=== PATIENT | female | born 1950 | race Caucasian/White ===

== ENCOUNTER → 2016-07-14 | Outpatient (CLI) | payer OTHER ==
[~2016-07-14] MED LIST: ALD2525 PO; FLUO20CA35 PO; PRLSR20 PO; SIMV40TA2 PO; UNKNOWN DIURETIC
--- NOTE | 2016-07-14 16:29 | MAMMOGRAPHY REPORT ---
BILATERAL DIGITAL SCREENING MAMMOGRAM WITH CAD: 07/14/2016 CLINICAL HISTORY: Routine screening. Patient has no complaints. TECHNIQUE: Current study was also evaluated with a Computer Aided Detection (CAD) system. COMPARISON: Comparison is made to exams dated: 04/20/2013 mammogram, 04/12/2013 mammogram, 10/14/2005 mammogram, and 02/28/1999 mammogram - [facility]. BREAST COMPOSITION: There are scattered areas of fibroglandular density in both breasts. FINDINGS: There is a possible small cluster of microcalcifications in the lateral, middle one third of the right breast, for which additional spot magnification views are recommended. A few scattered benign-appearing microcalcifications are seen in the left breast. No other suspicio us mass, architectural distortion or cluster of suspicious microcalcifications is seen. IMPRESSION: ACR BI-RADS CATEGORY 0: INCOMPLETE EVALUATION: NEED ADDITIONAL IMAGING EVALUATION The possible small cluster of microcalcifications in the lateral right breast needs additional evalu ation. The patient will be called to schedule an appointment. Approximately 10% of breast cancers are not detected with mammography. A negative mammographic repor t should not delay biopsy if a clinically suggestive mass is present. Muriel Cortez M.D. ay/:07/14/2016 15:07:46 Performance Test Architect: Zee DREW(Teresita)(Robyn), [facility] letter sent: Addl Imaging 0 BI-RADS Code: ACR BI-RADS Category 0: Incomplete Evaluation: Need Additional Imaging Evaluation
== END | disposition home or self-care (01) ==
LOC: C.MAMM 08:18
PROVIDERS: ATTEND Internal Medicine
DX: Z12.31 Encounter for screening mammogram for malignant neoplasm of breast (principal); R92.8 Other abnormal and inconclusive findings on diagnostic imaging of breast

== ENCOUNTER → 2016-07-24 | Outpatient (CLI) | payer OTHER ==
--- NOTE | 2016-07-24 14:56 | MAMMOGRAPHY REPORT ---
UNILATERAL RIGHT DIGITAL DIAGNOSTIC MAMMOGRAM: 07/24/2016 CLINICAL HISTORY: Callback from screening mammogram for right breast calcifications. TECHNIQUE: Spot magnification right CC and ML views were obtained. COMPARISON: Comparison is made to exams dated: 07/14/2016 mammogram, 04/20/2013 mammogram, 04/12/2013 mammogram, 10/14/2005 mammogram, and 02/28/1999 mammogram - [facility]. BREAST COMPOSITION: There are scattered areas of fibroglandular density in the right breast. FINDINGS: Spot magnification views of the right breast demonstrate a small 2 mm cluster of calcific ations in the right upper outer quadrant. One is a coarse benign-appearing calcification which is s table compared to the March 2013 exams, while the others are smaller and punctate and were not gilda dory evident on the 2013 exam although this could be due to technical differences (currently using [employer] equipment, previously using [employer] equipment). The calcifications are probably benign. IMPRESSION: ACR-BI-RADS CATEGORY 3: PROBABLY BENIGN Small 2 mm cluster of calcifications in the right upper outer quadrant is probably benign. Recommen d follow-up diagnostic mammograms in 6 months of the right breast to confirm stability on spot magni fication views. The patient has been verbally notified of the results. Approximately 10% of breast cancers are not detected with mammography. A negative mammographic repor t should not delay biopsy if a clinically suggestive mass is present. Serina Heard M.D. /:07/24/2016 08:22:49 Trimmer Machine: Cassie DREW(Teresita)(M), [facility] letter sent: Follow Up Recommended 3 BI-RADS Code: ACR-BI-RADS Category 3: Probably Benign
== END | disposition home or self-care (01) ==
LOC: C.MAMM 07:59
PROVIDERS: ATTEND Internal Medicine
DX: R92.1 Mammographic calcification found on diagnostic imaging of breast (principal)

== ENCOUNTER → 2016-08-20 | Outpatient (CLI) | payer OTHER ==
[2016-08-20 12:29] LABS: HEMATOCRIT 42.2 % (37-47); MEAN CELL VOLUME 92.5 fL (80-100); MEAN CORPUSCULAR HEMOGLOBIN 30.3 pg (25-34); MEAN CORPUSCULAR HGB CONC 32.7 g/dl (32-36); MEAN PLATELET VOLUME 11.7 fL (7.4-10.4); PLATELET COUNT 216 K/uL (130-400); RED BLOOD COUNT 4.56 M/uL (4.2-5.4); WHITE BLOOD COUNT 5.95 K/uL (4.8-10.8)
[2016-08-20 12:41] LABS: CALCIUM 9.4 mg/dl (8.5-10.1)
[2016-08-20 12:47] LABS: ALT/SGPT 25 U/L (12-78); BLOOD UREA NITROGEN 17 mg/dl (7-18); BUN/CREATININE RATIO 18.8 (10-20); CARBON DIOXIDE 29 mmol/L (21-32); CHLORIDE 106 mmol/L (98-107); CHOLESTEROL 179 mg/dl (0-200); CREATININE 0.92 mg/dl (0.60-1.20); GLUCOSE 88 mg/dl (70-99); POTASSIUM 3.7 mmol/L (3.5-5.1); SODIUM 142 mmol/L (136-145); TRIGLYCERIDES 123 mg/dl (0-150); VERY LOW DENSITY LIPOPROT CALC 25 mg/dl
[2016-08-20 12:52] LABS: ALB/GLOB RATIO 1.2 (0.9-2); ALKALINE PHOSPHATASE 89 U/L (45-117); AST/SGOT 22 U/L (15-37); CHOLESTEROL/HDL RATIO 4.2; HDL CHOLESTEROL 43 mg/dl; LDL CHOLESTEROL CALCULATED 111 mg/dl
[2016-08-20 12:53] LABS: ESTIMATED AVERAGE GLUCOSE 108 mg/dl; HA1C FLAG Normal (Normal)
== END | disposition home or self-care (01) ==
LOC: C.LABBFT 07:33
PROVIDERS: ATTEND Internal Medicine
DX: E78.5 Hyperlipidemia, unspecified (principal); R73.01 Impaired fasting glucose

== ENCOUNTER → 2016-09-09 | Outpatient (CLI) | payer OTHER | END | disposition home or self-care (01) | LOC: C.PAPS 09:23 | PROVIDERS: ATTEND Obstetrics & Gynecology | DX: Z01.419 Encounter for gynecological examination (general) (routine) without abnormal findings (principal) ==

== ENCOUNTER → 2017-01-25 | Outpatient (CLI) | payer OTHER ==
--- NOTE | 2017-01-25 14:57 | MAMMOGRAPHY REPORT ---
UNILATERAL RIGHT DIGITAL DIAGNOSTIC MAMMOGRAM TOMOSYNTHESIS WITH CAD: 01/25/2017 CLINICAL HISTORY: 66-year-old woman presents for follow-up in the right breast with particular attent ion to a small grouping of benign-appearing microcalcifications in the approximate 9:00 middle one th ird of the breast. TECHNIQUE: B right breast CC and MLO 2-D and tomosynthesis images, spot magnification right CC and M L views were obtained. Current study was also evaluated with a Computer Aided Detection (CAD) system . COMPARISON: Comparison is made to exams dated: 07/24/2016 mammogram, 07/14/2016 mammogram, 04/20/2013 m ammogram, 04/12/2013 mammogram, and 10/14/2005 mammogram - [facility]. BREAST COMPOSITION: There are scattered areas of fibroglandular density in the right breast. FINDINGS: Again noted is a small, 2 mm grouping of microcalcifications in the 9:00 middle one third o f the right breast. There is a stable coarse benign-appearing calcification included in the grouping and a few other punctate benign appearing microcalcifications. When comparing back to prior mammogr ams, these are stable comparing to the spot magnification views dated 07/24/2016, but only the coarse st calcification was present and identified on the 2013 mammograms. Although these microcalcificatio ns are most likely benign, another six-month follow-up diagnostic evaluation is recommended to ensure longer stability. There is stable nodularity in the lateral right breast, which appears similar to the 04/12/2013 mammo grams. No other new suspicious mass, asymmetry, calcifications or architectural distortion is identi fied. IMPRESSION: ACR-BI-RADS CATEGORY 3: PROBABLY BENIGN Stable mammographic appearance of the right breast including a small 2 mm grouping of coarse and punc anderson calcifications in the 9:00 right breast. Another six-month follow-up right diagnostic mammogram including spot magnification views is recommended to ensure longer stability. Annual left mammograp hy will also be due at that time. These results and recommendations were discussed with the patient at the time of the exam. Approximately 10% of breast cancers are not detected with mammography. A negative mammographic report should not delay biopsy if a clinically suggestive mass is present. Muriel Cortez M.D. ay/:01/25/2017 09:46:15 Packager Or Packer And Weigher: Cassie DREW(R)(M), [facility] letter sent: Follow Up Recommended 3 BI-RADS Code: ACR-BI-RADS Category 3: Probably Benign
== END | disposition home or self-care (01) ==
LOC: C.MAMM 08:30
PROVIDERS: ATTEND Internal Medicine
DX: R92.1 Mammographic calcification found on diagnostic imaging of breast (principal)

== ENCOUNTER → 2017-03-17 | Outpatient (CLI) | payer OTHER ==
[2017-03-17 12:29] LABS: BASO % 0.5 %; BASO ABS # 0.03 K/uL (0-0.2); COMPLETE YES; EOS % 5.6 %; HEMATOCRIT 43.6 % (37-47); IG% 0.2 %; LYMPH % 37.1 %; MEAN CELL VOLUME 92.2 fL (80-100); MEAN CORPUSCULAR HEMOGLOBIN 31.1 pg (25-34); MEAN CORPUSCULAR HGB CONC 33.7 g/dl (32-36); MEAN PLATELET VOLUME 11.4 fL (7.4-10.4); MONO % 8.3 %; NEUT % 48.3 %; PLATELET COUNT 218 K/uL (130-400); RED BLOOD COUNT 4.73 M/uL (4.2-5.4); WHITE BLOOD COUNT 5.93 K/uL (4.8-10.8)
[2017-03-17 13:07] LABS: ALT/SGPT 26 U/L (12-78); AST/SGOT 19 U/L (15-37); BLOOD UREA NITROGEN 21 mg/dl (7-18); BUN/CREATININE RATIO 23.7 (10-20); CALCIUM 9.2 mg/dl (8.5-10.1); CARBON DIOXIDE 30 mmol/L (21-32); CHLORIDE 103 mmol/L (98-107); GLUCOSE 95 mg/dl (70-99); POTASSIUM 3.8 mmol/L (3.5-5.1); SODIUM 138 mmol/L (136-145)
[2017-03-17 13:10] LABS: ALB/GLOB RATIO 1.1 (0.9-2); ALKALINE PHOSPHATASE 82 U/L (45-117); CHOLESTEROL 196 mg/dl (0-200); CHOLESTEROL/HDL RATIO 4.4; HDL CHOLESTEROL 45 mg/dl; LDL CHOLESTEROL CALCULATED 121 mg/dl; TRIGLYCERIDES 152 mg/dl (0-150); VERY LOW DENSITY LIPOPROT CALC 30 mg/dl
[2017-03-17 13:17] LABS: ESTIMATED AVERAGE GLUCOSE 108 mg/dl; HA1C FLAG Normal (Normal)
== END | disposition home or self-care (01) ==
LOC: C.LABBFT 07:26
PROVIDERS: ATTEND Physician Assistant Medical
DX: R73.01 Impaired fasting glucose (principal)

== ENCOUNTER → 2017-06-08 | Outpatient (CLI) | payer OTHER ==
--- NOTE | 2017-06-08 09:43 | DIAGNOSTIC IMAGING REPORT ---
L ANKLE MIN 3 VIEWS ROUTINE HISTORY: 67 years-old Female M25.572 Left ankle pain acute left ankle pain status post fall COMPARISON: None available TECHNIQUE: 3 views of the left ankle FINDINGS: There is mild circumferential soft tissue swelling about the ankle with trace joint effusion. No acute fracture or dislocation identified. No osteochondral defect. Moderate sized enthesophyte about the plantar calcaneus. No opaque foreign body. IMPRESSION: Mild soft tissue swelling and trace joint effusion without acute fracture. The above report was generated using voice recognition software. It may contain grammatical, syntax or spelling errors. Electronically signed by: Baron Ramos M.D. 06/08/2017 9:41 AM Dictated Date/Time: 06/08/2017 9:40 AM
--- NOTE | 2017-06-08 09:44 | DIAGNOSTIC IMAGING REPORT ---
L KNEE 1 OR 2 VIEWS ROUTINE HISTORY: 67 years-old Female M25.562 Left knee pain acute left knee pain status post fall COMPARISON: None available TECHNIQUE: 2 views of the left knee FINDINGS: Mild tricompartmental osteoarthritis about the left knee. Small knee joint effusion. There is no acute fracture or subluxation identified. IMPRESSION: Small knee joint effusion without acute fracture. The above report was generated using voice recognition software. It may contain grammatical, syntax or spelling errors. Electronically signed by: Baron Ramos M.D. 06/08/2017 9:43 AM Dictated Date/Time: 06/08/2017 9:41 AM
== END | disposition home or self-care (01) ==
LOC: C.RAD1850 09:30
PROVIDERS: ATTEND Nurse Practitioner
DX: M25.572 Pain in left ankle and joints of left foot (principal); M25.562 Pain in left knee

== ENCOUNTER → 2017-07-23 | Outpatient (CLI) | payer OTHER ==
--- NOTE | 2017-07-26 07:47 | MAMMOGRAPHY REPORT ---
BILATERAL DIGITAL DIAGNOSTIC MAMMOGRAM TOMOSYNTHESIS WITH CAD: 07/23/2017 CLINICAL HISTORY: Six-month follow-up of right breast calcifications. TECHNIQUE: Breast tomosynthesis in addition to standard 2D mammography was performed. Current study was also evaluated with a Computer Aided Detection (CAD) system. Bilateral CC and MLO 2D and tomosyn thesis images and spot magnification right CC and ML views were obtained. COMPARISON: Comparison is made to exams dated: 01/25/2017 mammogram, 07/24/2016 mammogram, 04/20/2013 mammogram, 04/12/2013 mammogram, 10/14/2005 mammogram, and 02/28/1999 mammogram - [facility]. BREAST COMPOSITION: There are scattered areas of fibroglandular density in both breasts. FINDINGS: Spot magnification views again demonstrate a small 2 mm cluster of benign-appearing coarse heterogeneous calcifications within the right 9:00 breast. The calcifications are stable on spot magn ification views dated back to June 2016, and are considered benign given the morphology and long-ter m stability. The remainder of both breasts are stable compared to prior exams, without suspicious ma sses, calcifications, or areas of architectural distortion noted. Scattered bilateral benign-appeari ng calcifications are not significantly changed. IMPRESSION: ACR BI-RADS CATEGORY 2: BENIGN Small cluster of benign-appearing calcifications in the right 9:00 breast is stable dating back to June 2016 exam and is considered benign given the morphology and stability. The cluster is well v isualized on the full-field views and can be reevaluated at the time of the next screening mammogram. There is no mammographic evidence of malignancy. A 1 year screening mammogram is recommended. The abi english has been verbally notified of the results. Approximately 10% of breast cancers are not detected with mammography. A negative mammographic report should not delay biopsy if a clinically suggestive mass is present. Serina Heard M.D. /:07/23/2017 09:28:23 Family Assistant: Cassie DREW(Teresita)(M), [facility] letter sent: Normal 1/2 BI-RADS Code: ACR BI-RADS Category 2: Benign
== END | disposition home or self-care (01) ==
LOC: C.MAMM 08:42
PROVIDERS: ATTEND Internal Medicine
DX: R92.1 Mammographic calcification found on diagnostic imaging of breast (principal)

== ENCOUNTER 2024-05-22 05:05 | Observation (INO) ==
--- NOTE | 2024-04-19 12:36 | PAT Medication Instructions ---
Medication Instructions Date of Service April 19, 2024 Home Medications Medication Instructions Recorded atorvastatin 20 mg tablet 20 mg PO QPM #90 tabs 06/02/23 spironolactone 25 1 tab PO BID #180 tabs 11/30/23 mg-hydrochlorothiazide 25 mg tablet aspirin 81 mg tablet 81 mg PO DAILY multivitamin (Multiple Vitamins tablet) 1 tab PO QAM atorvastatin 20 mg tablet 20 mg PO QPM spironolactone 25 mg-hydrochlorothiazide 25 mg tablet 1 tab PO BID calcium 600 mg (as carbonate)-vitamin D3 5 mcg (200 unit) tablet 2 tab PO DAILY fluoxetine 20 mg capsule 20 mg PO QAM omeprazole 20 mg capsule,delayed release 20 mg PO QAM ASK your prescriber and surgeon aspirin 81 mg tablet 81 mg PO DAILY DO NOT take the morning of surgery multivitamin (Multiple Vitamins tablet) 1 tab PO QAM spironolactone 25 mg-hydrochlorothiazide 25 mg tablet 1 tab PO BID calcium 600 mg (as carbonate)-vitamin D3 5 mcg (200 unit) tablet 2 tab PO DAILY Take morning of surgery With a small sip of water, OTHERWISE NOTHING TO EAT OR DRINK AFTER MIDNIGHT: fluoxetine 20 mg capsule 20 mg PO QAM omeprazole 20 mg capsule,delayed release 20 mg PO QAM Take evening before surgery atorvastatin 20 mg tablet 20 mg PO QPM spironolactone 25 mg-hydrochlorothiazide 25 mg tablet 1 tab PO BID Other Notes If you have any questions please call us at [phone] or [phone] or [phone] or [phone]
--- NOTE | 2024-04-26 10:50 | Anesthesiology Consultation ---
Date of Service April 26, 2024 Assessment & Plan (1) Encounter for pre-operative examination: Chart Review Chart Review: Acceptable Risk for Surgery and Patient seen in Pre Admission Testing - Discussed adrenal nodule with Dr. Ames (patient referred to endocrine by PCP but has not yet seen endocrine (plans to follow up post op)); adrenal nodule found incidentally. Patient denies jitteriness, sweats or palpitations. Patient active without issues. Vital signs stable- patient can proceed as scheduled - Patient is NOT an ideal OPJ candidate (currently 23 hour obs) Per PAT appt on 04/26/24, no recent illness/disease exposures, illness related symptoms, or recent illness/disease positive tests. Will leave to surgeon's discretion if preop Covid testing needed Teaching & Discussion Pre-Anesthesia Teaching/Discussion Notes: Instructed NPO after midnight before surgery,except medications with 15 cc of water. Medication instructions provided according to the PAT guidelines. History Surgery Operation Date: 05/22/24 12:35 Proposed Procedures p Right Anterior Total Hip Arthroplasty - Alfredo Us DO Height/Weight Height: 5 ft 8 in Weight: 89.6 kg Allergies Allergy/AdvReac Type Severity Reaction Status Date / Time No Known Allergies Allergy Verified 04/11/24 12:41 Medications Home Medications Medication Instructions Recorded Confirmed Last Taken aspirin 81 mg tablet 81 mg PO DAILY 09/08/18 04/11/24 Unknown multivitamin (Multiple Vitamins 1 tab PO QAM 12/04/21 04/11/24 Unknown tablet) atorvastatin 20 mg tablet 20 mg PO QPM #90 tabs 06/02/23 04/11/24 Unknown spironolactone 25 1 tab PO BID #180 tabs 11/30/23 04/11/24 Unknown mg-hydrochlorothiazide 25 mg tablet calcium 600 mg (as 2 tab PO DAILY 04/11/24 04/11/24 Unknown carbonate)-vitamin D3 5 mcg (200 unit) tablet fluoxetine 20 mg capsule 20 mg PO QAM 04/11/24 04/11/24 Unknown omeprazole 20 mg capsule,delayed 20 mg PO QAM 04/11/24 04/11/24 Unknown release Past Medical History Medical History (Updated 04/26/24 @ 11:24 by Sanjuanita Wolf PA-C) Acquired deviated nasal septum no issues breathing out of nose Adrenal nodule CT scan 12/02/24 - monitoring. Bilateral lower extremity edema no current issues with medications Depression with anxiety GERD without esophagitis well controlled and stable History of COVID-19 + home test approx 2021- symptoms completely resolved History of vertigo no recent issues Hypercholesterolemia Hypertension Left thyroid nodule hx bx - benign. Osteoarthritis of right hip Exercise / Class Metabolic Activity II 4-5 Yardwork/Stairs/Walk up hill (one flight of stairs - no chest pain or SOB ) Past Family History Family History Mother COPD (chronic obstructive pulmonary disease) Heart disease Other No family history of bleeding disorder Denies family history of Ovarian cancer Prostate cancer Myocardial infarction Breast cancer Colorectal cancer Cancer Hypertension Stroke Asthma Past Surgical History Surgical History History of biopsy thyroid S/P tubal ligation S/P wisdom tooth extraction pt doesn't remember this procedure. Past Anesthesia History No Hx of Anesthesia Complications and No Family Hx of Anesthesia Complications History of PONV No Hx of PONV and No Hx of Motion Sickness Social History Smoking Status: Former smoker Smoking cigarettes per day: 30 cigs/day Do You Dip or Chew Tobacco: No Smoking End Date: Around 1989 Hx Alcohol Use: Yes Alcohol type: hard liquor alcohol intake frequency: holidays/special occasions only Hx Substance Use: No substance use type: does not use Review of Systems - Hx of snoring - no hx of sleep study Patient denies chest pain, shortness of breath, dyspnea on exertion, cough, wheezing, palpitations. No hx of seizures, stroke, RI. No hx of blood clots or blood transfusions Physical Exam Vital Signs VITALS BP 127/79 P 71 TEMP 97.8 SP02 95% RESP 16 Constitutional no acute distress ENMT Mouth: no TMJ clicking Thyromental Distance: > or= 3.5 Finger Breadths (3.5) Mallampati Class: II Full upper denture; bottom lower denture Neck neck extension not limited Respiratory normal respiratory effort; no respiratory distress Auscultation: lungs clear to auscultation bilaterally; no wheezes Cardiovascular Rate/Rhythm: regular rate and regular rhythm Heart Sounds: no murmur Vessels: no carotid bruit Musculoskeletal Spine: no pain with cervical ROM Extremities: extremities normal to inspection Psychiatric Orientation: alert Lab Results Anesthesia Preop Results Results Anesthesia Widget: WBC 6.83 K/ul (4.8-10.8) 04/26/24 Hgb 13.2 g/dl (12.0-16.0) 04/26/24 Hct 39.3 % (37.0-47.0) 04/26/24 Plt 226 K/uL (130-400) 04/26/24 Na 140 mmol/L (136-145) 04/26/24 K 4.3 mmol/L (3.5-5.1) 04/26/24 Cl 104 mmol/L (98-107) 04/26/24 CO2 29 mmol/L (21-32) 04/26/24 BUN 23 mg/dl (6-23) 04/26/24 Creat 0.88 mg/dl (0.6-1.2) 04/26/24 Glucose Level 81 mg/dl (70-99(Fasting)) 04/26/24 PT 10.3 Seconds (9.0-12.0) 04/26/24 PTT 24 Seconds (21-31) 04/26/24 INR 0.9 (0.9-1.1) 04/26/24 Blood Type O Positive 04/26/24 Antibody Screen NEGATIVE 04/26/24 Testing Electrocardiogram Date: 04/26/24 Findings: + NSR @ (68bpm) Normal EKG per cardio Other Testing Chest CT 02/28/24= No CT findings to explain the patient's right-sided chest pain. 13 x 15 mm left adrenal nodule which is indeterminate. Moderate hiatal hernia. Coronary artery disease. Central airways are patent without endobronchial lesions. Bilateral dependent atelectasis. No suspicious pulmonary nodules or masses identified.
[2024-05-22] MEDS: LR 60ML/HR IV SCH (06:00)
[2024-05-22] MEDS: GABAPENTIN 300 MG CAP PO SCH (06:00)
[2024-05-22] MEDS: FAMOTIDINE 20 MG TAB PO SCH (06:00)
[2024-05-22] MEDS: ACETAMINOPHEN 500 MG TAB PO SCH ×2 (06:00→14:00)
[2024-05-22] MEDS: dexAMETHasone**PF** 10 MG/ML VIAL IV SCH (06:12)
[2024-05-22] MEDS: LR 500ML BOLUS, THEN 15ML/HR IV SCH (06:12)
[2024-05-22] MEDS ORDERED: BUPIVACAINE 0.5 % 5 MG/1 ML PF 10ML VIAL ONE (06:27)
[2024-05-22] MEDS ORDERED: fentaNYL citrate PF 100 MCG/2 ML VIAL ONE (06:32)
[2024-05-22] MEDS ORDERED: MIDAZOLAM HCL 1 MG/ML 2ML VIAL ONE (06:32)
[2024-05-22] MEDS ORDERED: PHENYLEPHRINE HCL 10 MG/ML VIAL ONE (06:34)
[2024-05-22] MEDS ORDERED: LIDOCAINE 2% 2 ML VIAL/AMP(20MG/ML) INFIL ONE (06:36)
[2024-05-22] MEDS ORDERED: ONDANSETRON INJ 2 MG/ML 2 ML VIAL ONE (06:36)
[2024-05-22] MEDS ORDERED: PROPOFOL IV EMULSION 10 MG/ML 20 ML VIAL IV ONE ×2 (06:37)
--- NOTE | 2024-05-22 06:48 | History & Physical Bridge Note ---
Date of Service May 22, 2024 History & Physical Bridge Note I have examined the patient, reviewed the History & Physical and in the interval since the performance of the History & Physical I have noted the following changes of clinical significance: no changes noted
[2024-05-22] MEDS: TRANEXAMIC ACID 1,000 MG **IV Pre-op IV SCH (06:55)
[2024-05-22] MEDS: ceFAZolin 2000MG 2,000 MG/15 ML SYR IV SCH (07:00)
[2024-05-22] MEDS ORDERED: ePHEDrine sulfate 50 MG/ML AMP IV PRN (07:10)
[2024-05-22] MEDS ORDERED: fentaNYL citrate PF 100 MCG/2 ML VIAL IV PRN (07:10)
[2024-05-22] MEDS ORDERED: ATROPINE SULFATE 0.1 MG/ML 10ML SYR IV PRN (07:10)
[2024-05-22] MEDS ORDERED: ONDANSETRON INJ 2 MG/ML 2 ML VIAL IV PRN ×2 (07:10→09:40)
[2024-05-22] MEDS ORDERED: PROMETHAZINE HCL 6.25 MG in SODIUM CHLORIDE 0.9% 50 ML IV PRN (07:10)
[2024-05-22] MEDS: ROPIV 0.5% 246mg, Ketorolac 30mg, EPINEPHrine 0.5mg in NSS INFIL SCH (07:26)
[2024-05-22] MEDS: ORTHO JOINT ANESTHETIC ONE (07:26)
[2024-05-22] MEDS: TRANEXAMIC ACID 1,000 MG **IV Intra-op IV SCH (08:18)
--- NOTE | 2024-05-22 08:23 | Operative Report ---
PG Post Operative Report Pre & Post Diagnosis Operation Date: 05/22/24 07:00 Pre-Op Diagnosis: Right Hip Osteoarthritis Post-Op Diagnosis: Right Hip Osteoarthritis I identified the patient and participated in the time-out.: Yes Procedure Operation Date: 05/22/24 07:00 Actual Procedures p Right Anterior Total Hip Arthroplasty, Cemented(Right) - Alfredo Us DO Surgeon Alfredo Us DO [place] Baron Arredondo PA-C Estimated Blood Loss 200 Findings Consistent with Post-Op Diagnosis Specimens Right femoral head Description of Procedure Implants used I used a [employer] total hip arthroplasty system with a size 9 cemented echo stem, a 54 mm G7 cup with a 25mm screw, an E1 polyethylene liner, a 40 mm ceramic head with a +3.5 neck. Patricia arrived at the hospital for the above procedure. She was seen in the preoperative holding area and the operative extremity was identified and signed. She was given a spinal anesthetic, a preoperative antibiotic, and TXA. She was then taken back to the operating room and laid on the table in the supine position. She was given basic sedation. The operative leg was secured to a Puristst leg positioner. The hip was then prepped and draped in sterile fashion. A timeout was done and the patient and the operative extremity was properly identified. An anterior approach was used. Dissection was taken down through the fascia and the tensor muscle belly was retracted laterally and the rectus was retracted medially. The circumflex vessels were identified and ligated. The capsule was then incised and tagged for later repair. The femoral neck was then cut and the femoral head was removed. The acetabulum was exposed. Time was spent doing a complete circumferential labral release. Sequential reaming of the acetabulum up to a size 53 reamer was done. Final reamings were done under fluoroscopy to ensure appropriate version. A Biomet 54 mm G7 cup was then impacted into place. A single 25 mm screw was placed. The E1 polyethylene liner was then snapped into place. Surrounding soft tissues were then injected with 100 cc of an orthopedic pain control cocktail. The proximal femur was then exposed. Sequential broaching up to a size 9 broach was done. Off that broach a size 40 head with a +3.5 neck was trialed. The hip was reduced and fluoroscopic images showed anatomic alignment of the implants in acceptable length. The broach was removed. The final size 9 echo stem was then cemented into place. A ceramic 40 mm head with a +3.5 neck was then impacted onto the stem and the hip was reduced. Final fluoroscopic images showed anatomic alignment of the hip. The capsule was then closed with #1 Vicryl suture. A dilute betadyne lavage was then done for 3 minutes. The joint was then irrigated with normal saline solution. The fascia was closed with #1 PDS suture. Skin was closed with 2-0 Vicryl, talat, and a Silverlon dressing. She was then transferred to a hospital bed and taken to the post anesthesia care unit in stable condition. She tolerated the procedure well. Baron Arredondo PA-C, was present for the entire procedure. He was critical for patient positioning, prepping, draping, retraction exposure, wound closure and application of sterile dressing. I attest to the content of the Intraoperative Record and any orders documented therein. Any exceptions are noted below.
[2024-05-22] MEDS ORDERED: bisacodyL 10 MG SUPP PR PRN (09:40)
[2024-05-22] MEDS ORDERED: MAGNESIUM HYDROXIDE SUSP 30 ML UDC PO PRN (09:40)
[2024-05-22] MEDS ORDERED: oxyCODONE HCL IR 5 MG TAB (IMMEDIATE RELEASE) PO PRN (09:40)
[2024-05-22] MEDS ORDERED: NALOXONE HCL 0.4 MG/1 ML VIAL/CARP IV PRN (09:40)
[2024-05-22] MEDS ORDERED: METOCLOPRAMIDE HCL INJ 5 MG/ML 2 ML VIAL IV PRN (09:40)
--- NOTE | 2024-05-22 09:43 | XRay Report ---
XR hip 1V RT w pelvis CLINICAL HISTORY: IN PACU - Post Surgical COMPARISON: 05/22/2024 FINDINGS: Right hip prosthesis shows no hardware complication. There is expected soft tissue gas. Sk in talat are present. IMPRESSION: Unremarkable postoperative exam. ACT 112: Negative or not required by law. Electronically signed by: David Crockett M.D. 05/22/2024 9:41 AM
[2024-05-22] MEDS: FLUoxetine HCL 20 MG CAP PO SCH (10:35)
[2024-05-22] MEDS: SPIRONOLACTONE 25 MG TAB PO SCH (10:35)
[2024-05-22] MEDS: MULTIVITAMIN TAB PO SCH (10:35)
[2024-05-22] MEDS: hydroCHLOROthiazide 25 MG TAB PO SCH (10:36)
[2024-05-22] MEDS: ASPIRIN 81 MG ECTAB PO SCH (10:36)
[2024-05-22] MEDS: DOCUSATE SODIUM 100 MG CAP PO SCH (10:41)
[2024-05-22] MEDS: KETOROLAC TROMETHAMINE 15 MG/ML VIAL IV SCH (10:41)
--- NOTE | 2024-05-22 10:56 | Fluoroscopy Report ---
FL hip RT 1V CLINICAL HISTORY: RIGHT ANTERIOR HIP COMPARISON STUDY: None FLUOROSCOPY TIME: 33 seconds FLUOROSCOPY IMAGES: 1 EXPOSURE DOSE: 3.4 mGy FINDINGS: Right hip prosthesis shows no hardware complication. IMPRESSION: Intraoperative fluoroscopy. ACT 112: Negative or not required by law. Electronically signed by: David Crockett M.D. 05/22/2024 10:55 AM
--- NOTE | 2024-05-22 13:32 | Anesthesiology Progress Note ---
Date of Service May 22, 2024 Anesthesia Post Procedure Vital Signs Vital Signs: Temp Pulse Pulse Resp BP Pulse Ox O2 Del Method 05/22/24 12:32 36.7 C 95 H 18 117/71 95 Room Air 05/22/24 11:31 36.7 C 90 18 119/73 97 Room Air 05/22/24 10:39 36.4 C L 84 16 118/62 95 Room Air 05/22/24 10:08 36.5 C 76 18 122/70 97 Room Air 05/22/24 09:41 36.5 C 74 17 106/64 94 Room Air 05/22/24 09:15 36.5 C 70 15 109/58 L 97 Room Air 05/22/24 09:05 68 14 100/53 L 99 Room Air 05/22/24 08:55 68 13 101/56 L 100 Oxymask 05/22/24 08:49 36.4 C L 78 14 98/52 L 99 Oxymask 05/22/24 05:50 136/82 05/22/24 05:35 36.4 C L 80 18 158/86 H 95 Room Air O2 Flow Rate 05/22/24 12:32 05/22/24 11:31 05/22/24 10:39 05/22/24 10:08 05/22/24 09:41 05/22/24 09:15 05/22/24 09:05 05/22/24 08:55 5 05/22/24 08:49 5 05/22/24 05:50 05/22/24 05:35 Transfer of Care Handoff Completed per policy Notes Mental Status: alert / awake / arousable Patient Amnestic to Procedure: Yes Nausea / Vomiting: adequately controlled Pain: adequately controlled Airway Patency, RR, SpO2: stable & adequate BP & HR: stable & adequate Hydration State: stable & adequate Neuraxial Anesthesia: was administered and sensory block is resolving Anesthetic Complications: no major complications apparent and Pt Satisfied with anesthetic care
[2024-05-22] MEDS: ceFAZolin 1000MG 1,000 MG/7.5 ML SYR IV SCH (15:02)
[2024-05-22] MEDS: SENNA 8.6 MG TAB PO SCH (20:45)
[2024-05-22] MEDS: ATORVASTATIN 20 MG TAB PO SCH (20:46)
[2024-05-23 03:10] VITALS: TEMP 98.1
[2024-05-23 07:39] VITALS: BP 118/64; PULSE 73; RESP 14; O2SAT 94
--- NOTE | 2024-05-23 07:47 | Orthopedic Progress Note ---
Date of Service May 23, 2024 Assessment & Plan (1) Status post right hip replacement: Overall she is doing very well. She is not having much pain in the right hip. She will be seen by physical therapy today for ambulation and range of motion exercises. She is on aspirin for DVT prophylaxis. She can be discharged home later today. She will follow-up orthopedics in 2 weeks. Sanjay Gomez was seen and examined at bedside this morning. Overall she is doing very well. She is not having much pain in the right hip. She has been up and ambulating to the bathroom. She is no complaints.. Review of Systems All systems reviewed & are unremarkable except as noted in HPI & below. Physical Exam On physical exam of the right hip, the dressing is clean and dry. Her leg is out full extension. She has active dorsiflexion plantarflexion of her right ankle.. Results & Data Results & Data Laboratory Results . Diagnostic Findings Postoperative x-rays of the right hip show the prosthesis to be in anatomic alignment without any evidence of fracture, dislocation, or loosening.. PG Care Time/CCT Total # of Minutes Spent Total Time Spent with Patient: Total time spent is greater than 50% in coordination of care (as documented) at patient's floor/unit and/or counseling patient: Coding Level of Care Code 20536 Post Operative Follow-Up Diagnoses Status post right hip replacement Z96.641
--- NOTE | 2024-05-23 07:48 | Discharge Summary ---
Date of Service May 23, 2024 Principal Diagnosis Same as "Discharge Diagnosis" noted below under Discharge Instructions. Discharge Exam On physical exam of the right hip, the dressing is clean and dry. Her leg is out full extension. She has active dorsiflexion plantarflexion of her right ankle.. Discharge Data Procedures Performed Operation Date: 05/22/24 07:00 Actual Procedures p Right Anterior Total Hip Arthroplasty, Cemented(Right) - Alfredo Us DO Ordered Studies 05/22/24 07:00 FL hip RT 1V Routine Hospital Course (1) Status post right hip replacement: On May 22, 2024 Patricia arrived at [facility] and underwent a right hip replacement without complication. She had a spinal anesthetic. Postoperatively, she was started on aspirin for DVT prophylaxis and transferred to the general orthopedic floors. Her hospital course was uneventful. On postop day #1, her vital signs were stable and her pain was well-controlled. She was able to participate well with physical therapy doing ambulation and range of motion exercises. She was then discharged to home. She will follow with orthopedics in 2 weeks. PG Care Time/CCT Total # of Minutes Spent Total Time Spent with Patient: Total time spent is greater than 50% in coordination of care (as documented) at patient's floor/unit and/or counseling patient: Discharge Plan Discharge Items Patient Disposition: Home - Self-Care Reason For Visit: Right Hip Arthritis Discharge Diagnosis: Right hip replacement Activity: Per Instructions section Non-emergency contact: Surgeon Call non-emergency contact if: your wound has increased redness and your wound has increased drainage Follow-up/Referrals: Kathie Espinosa MD [Primary Care Provider] - Diet: Regular Addtl Attending Provider Instructions: Activity and Therapy Recommendations: * If you are using [facility] then therapy will be provided at your home until they feel you have accomplished all of your goals. * If you are using [facility] then Physical Therapy will be provided until they feel you are ready to start Outpatient Physical Therapy. * If you are not using home therapy then Outpatient Physical Therapy should start about 3-5 days from your day of surgery. Therapy will last about 6-10 weeks * You were shown a series of exercises in the hospital. Do these exercises three times each day including the exercises you were shown in physical therapy. * Get up and walk several times each day.~ For the first four weeks, try not to stand or walk for more than one hour at a time. If you do stand or walk for more than one hour, you will not hurt anything, but your leg will likely swell.~~ * As you feel comfortable, you may change from the walker or crutches to a cane and~then to independent walking. Medications: * Narcotic You will likely be sent home from the hospital with a prescription for the narcotic pain medication that worked best throughout your stay. * Cefadroxil -take the antibiotic twice a day for 10 days to help prevent infection. * Aspirin Most patients will be required to take Aspirin 81mg twice a day for 6 weeks after surgery. This is obtained [id number] and a prescription is not necessary. * Other medications may be prescribed for specific circumstances. If you have any questions, please call the office at . * Resume previous home medications unless otherwise instructed TEDs/Elastic Stockings: The white elastic stockings help limit swelling and prevent blood clots from forming in your legs. The more you wear them, the more they work. Wear them for six weeks. Dressing Care: Leave the Silverlon dressing in place for 7 days. After 7 days you may remove the dressing. If the incision is not draining then you may leave the talat open to air. If there is a little bit of drainage or if the talat are getting stuck on your clothing then cover the incision with a dry dressing. The talat will be removed at your 2 week follow-up appointment. Showering: You may shower with the Silverlon dressing in place. Do not let the shower spray hit the dressing directly. Pat the Silverlon dressing dry. If the dressing becomes wet underneath, then simply remove the dressing. Keep the incision dry until you are 7 days out from the day of surgery. After 7 days you may remove the Silverlon dressing and shower with the talat exposed. Let soapy water run over the talat and pat them dry. Do not scrub or soak the incision. Diet: You may resume your previous diet. Things To Watch For: * Drainage from the incision site that occurs more than one week after your surgery. * Increased redness at the incision site. * Fever above 102 degrees Fahrenheit. * Unusual chest pain or shortness of breath. * Call [facility] at with any of the above problems Follow-Up Visit: Follow-up with Dr. Us's office 2-3 weeks after your day of surgery. We will remove your talat and answer any questions. If you have any additional questions or concerns, Dr Us is usually in the office at the same time and will be available An appointment was probably scheduled when you signed-up for surgery in the office. If you have any questions call Office Instructions: More detailed instructions as well as Frequently Asked Questions were provided in a folder by our office when you signed-up for surgery. Please review these instructions when you get home. If you have any further questions or concerns, please feel free to call the office at [phone] Pending Studies at Discharge: No Stand-Alone Forms: [facility], Smoking Cessation Medications and DC Order Prescriptions: New oxycodone 5 mg tablet 5 mg PO Q6H PRN (Reason: pain) Qty: 30 0RF cefadroxil 500 mg capsule 500 mg PO BID 10 Days Qty: 20 0RF aspirin 81 mg Tablet,Delayed Release (Dr/Ec) 81 mg PO BID 42 Days Qty: 84 0RF Continued atorvastatin 20 mg tablet 20 mg PO QPM Qty: 90 3RF spironolacton-hydrochlorothiaz 25-25 mg tablet 1 tab PO BID Qty: 180 3RF multivitamin [Multiple Vitamins] Tablet 1 tab PO QAM calcium carbonate-vitamin D3 [Calcium + D] 600 mg-5 mcg (200 unit) Tablet 2 tab PO DAILY Patient Comments: calcium is 600 and D is 20 mcg per tablet. omeprazole 20 mg capsule,delayed release(DR/EC) 20 mg PO QAM fluoxetine 20 mg capsule 20 mg PO QAM Discontinued aspirin 81 mg tablet 81 mg PO DAILY Discharge Orders: Discharge Order (Routine); Ordered 05/23/24 Ordered By: Alfredo Us Admission Data Admit Date/Time: 05/22/24 08:53 Attending Provider: Alfredo Us Admit Provider: Alfredo Us Primary Care Provider: Kathie Espinosa
[2024-05-23] MEDS: PANTOprazole 40 MG TAB PO SCH (08:04)
[2024-05-23] MEDS: dexAMETHasone 4 MG TAB PO SCH (08:06)
== END 2024-05-23 11:18 | disposition home or self-care (01) ==
LOC: ASU 05:05 → 3N 05:05